=== PATIENT | female | born 1970 | race Caucasian/White ===

== ENCOUNTER 2017-12-13 06:05 | Emergency (ER) | payer SELFPAY ==
[~2017-12-13] VITALS: Ht 165.1 cm; Wt 65.1 kg
[2017-12-13 06:13] VITALS: BP 147/85
--- NOTE | 2017-12-13 06:18 | NUR ---
47Y F BIB FAMILY C/O 1 INCH LACERATION TO LEFT SIDE OF FOREHEAD, S/P FALL OFF BED AND HIT CORNER OF TABLE. PT DENIES ANY LOC/KO. PT DENIES ANY N/V/D/,CP, SOB AT THE MOMENT. PT IS AAOX4. BREATHING IS UNLABORED AND EVEN. PT AMBULATED TO ER BED 11 WITH STEADY GAIT. PT ACCOMPANIED BY FAMILY AT BEDSIDE. PT PLACED IN POSITION OF COMFORT.
--- NOTE | 2017-12-13 06:25 | NUR ---
Patient being evaluated by physician at bedside.
[2017-12-13] MEDS ORDERED: LIDOCAINE/EPI 2% 1:100000 20 ML VIAL INJ ONE ×2 (06:30→06:35)
--- NOTE | 2017-12-13 06:52 | NUR ---
LIDO/EPI 2% PLACED AT BEDSIDE FOR ER MD DR SUÁREZ TO ADMINISTER
--- NOTE | 2017-12-13 07:09 | NUR ---
INITIATED LAC REPAIR
--- NOTE | 2017-12-13 07:13 | NUR ---
FINISHED LAC REPAIR
[2017-12-13 07:21] VITALS: BP 141/81
--- NOTE | 2017-12-13 07:21 | NUR ---
Patient discharged with v/s stable. Written and verbal after care instructions given and explained. Patient alert, oriented and verbalized understanding of instructions. Ambulatory with steady gait. All questions addressed prior to discharge. ID band removed. Patient advised to follow up with PMD. Opportunity to ask questions provided and answered.
== END 2017-12-13 07:21 | disposition home or self-care (01) ==
LOC: MED 06:05
DX: S01.81XA Laceration without foreign body of other part of head, initial encounter (principal); Z88.2 Allergy status to sulfonamides; W06.XXXA Fall from bed, initial encounter; Y93.89 Activity, other specified; Y92.89 Other specified places as the place of occurrence of the external cause; Y99.8 Other external cause status
CPT/HCPCS: 12001; 99283; J2001

== ENCOUNTER 2019-08-21 00:29 | Emergency (ER) | payer MEDICAID, OTHER ==
[~2019-08-21] VITALS: Ht 165.1 cm; Wt 61.2 kg
--- NOTE | 2019-08-21 00:30 | NUR ---
PT WAS WHEEL CHAIRED TO BED #11
[2019-08-21 00:34] VITALS: BP 109/54
[2019-08-21] MEDS ORDERED: KETOROLAC 60 MG/2 ML VIAL IM ONE (00:50)
[2019-08-21] MEDS ORDERED: DIAZEPAM 5 MG TAB PO ONE (01:10)
--- NOTE | 2019-08-21 01:10 | NUR ---
48/F PRESENTS TO ED WITH FAMILY/FRIEND, C/O L GROIN PAIN RADIATING TO L THIGH, SINCE YESTERDAY AFTERNOON. PT DENIES FEVER, N/V/D, CONSTIPATION OR DYSURIA. DENIES TRAUMA/INJURY. PT AWAKE AND ALERT, RESTLESS, SKIN NORMAL COLOR WARM AND DRY, RR EVEN AND UNLABORED. DENIES MED HX. REPORTS TAKING OLD RX NORCO FROM TOOTH PAIN, WITHOUT RELIEF.
[2019-08-21 01:56] VITALS: BP 110/64
--- NOTE | 2019-08-21 01:56 | NUR ---
Patient discharged with v/s stable. Written and verbal after care instructions given and explained. Patient alert, oriented and verbalized understanding of instructions. Ambulatory with steady gait. All questions addressed prior to discharge. ID band removed. Patient advised to follow up with PMD. Rx of CIPRO 500MG, MOTRIN 600MG AND VALIUM 5MG given. Patient educated on indication of medication including possible reaction and side effects. Opportunity to ask questions provided and answered.
== END 2019-08-21 01:56 | disposition home or self-care (01) ==
LOC: MED 00:29
DX: M79.605 Pain in left leg (principal); N39.0 Urinary tract infection, site not specified; Z98.890 Other specified postprocedural states
CPT/HCPCS: 81002; 81025; 96372; 99283; J1885

== ENCOUNTER 2019-08-23 01:00 | Emergency (ER) | payer OTHER ==
[~2019-08-23] VITALS: Ht 165.1 cm; Wt 61.2 kg
[2019-08-23 01:05] VITALS: BP 130/49
--- NOTE | 2019-08-23 01:06 | NUR ---
PT TAKEN TO BED 12 VIA WHEELCHAIR.
--- NOTE | 2019-08-23 01:10 | NUR ---
48 YO F BIB PRESENTS TO ED C/O 08/20 ACHING LEFT LEG PAIN THAT PT STATES IS CONSTANT AND SEVERE X 2-3 DAYS. PT STATES IT STARTS WHERE HER THIGH MEETS HER PELVIS AND RADIATES ALL THE WAY DOWN HER LEG INTO HER TOES. PT REPORTS IT SPASMS AT TIMES. PT DENIES RECENT TRAUMA/INJURY. NO VISIBLE DEFORMITIES NOTED. PT WAS SEEN YESTERDAY AND WAS TX FOR UTI. SENT HOME WITH CIPRO, MOTRIN AND VALIUM -- PT AWAKE, A/O X 4. APPEARS TO BE IN SEVERE PAIN; MOANING, HYPERVENTILATING, CRYING, UNABLE TO STAY STILL. -- PT REQUIRED WC ASSISTANCE AND WAS CARRIED BY INTO BED. PMH-- DENIES RX-- CIPRO, MOTRIN, VALIUM @ 1600 YESTERDAY
--- NOTE | 2019-08-23 01:18 | NUR ---
DR. TROTTER EVALUATING AT BEDSIDE.
[2019-08-23] MEDS ORDERED: MORPHINE SULFATE 2 MG/ML SYR IM ONE (01:25)
[2019-08-23] MEDS ORDERED: LORazepam 2 MG/ML VIAL IM ONE (01:25)
--- NOTE | 2019-08-23 01:40 | NUR ---
XRAY AT BEDSIDE.
--- NOTE | 2019-08-23 02:10 | NUR ---
EMT PROVIDING CRUTCHES DEMONSTRATION AT BEDSIDE.
--- NOTE | 2019-08-23 02:12 | NUR ---
PT CRUTCHES FITTED TO PT HEIGHT AND ARM LENGTH. PT GIVEN INSTRUCTIONS ON PROPER USE OF CRUTCHES AND PT DEMONSTRATED SAFE USE.
[2019-08-23 02:22] VITALS: BP 117/84
--- NOTE | 2019-08-23 02:22 | NUR ---
Patient discharged with v/s stable. Written and verbal after care instructions given and explained. Patient alert, oriented and verbalized understanding of instructions. Ambulatory with steady gait. All questions addressed prior to discharge. ID band removed. Patient advised to follow up with PMD. Rx of Tramadol and Robaxin given. Patient educated on indication of medication including possible reaction and side effects. Opportunity to ask questions provided and answered.
== END 2019-08-23 02:22 | disposition home or self-care (01) ==
LOC: MED 01:00
DX: S76.012A Strain of muscle, fascia and tendon of left hip, initial encounter (principal); I10 Essential (primary) hypertension; Z98.890 Other specified postprocedural states; Z88.2 Allergy status to sulfonamides; X58.XXXA Exposure to other specified factors, initial encounter; Y92.89 Other specified places as the place of occurrence of the external cause; Y93.89 Activity, other specified; Y99.8 Other external cause status
CPT/HCPCS: 73502; 96372; 99283; J2060; J2270; Q0092

== ENCOUNTER 2022-01-03 13:07 | Emergency (ER) | payer OTHER ==
[~2022-01-03] VITALS: Ht 165.1 cm; Wt 63.5 kg
[2022-01-03 13:10] VITALS: BP 149/92
--- NOTE | 2022-01-03 13:30 | NUR ---
51 y/o F BIB self from home c/o cough, SOB and chest pain x 1 day. Patient A&Ox4, ambulatory, reports chest pain 8/10, pressure/tightness/intermittent, radiating to back of neck. Pt reports symptoms began while walking and alleviates with rest. Patient states testing + for COVID last month and reports negative test today prior to arrival. Denies nausea, vomiting, dizziness, headache, blurry vision, abdominal pain. Denies meds prior to arrival. Pt placed onto teletypesetter monitor. VSS; respirations even/unlabored; SpO2 99% on room air. Cap refill <2 seconds; skin pink/warm/dry. Bed locked in lowest position, side rails x 2. PMH/Sx/Meds: degenreative disk disease, C-sections NKDA
--- NOTE | 2022-01-03 13:30 | NUR ---
EMT at bedside for EKG
--- NOTE | 2022-01-03 13:41 | NUR ---
Dr. Toth is evaluating patient at bedside
--- NOTE | 2022-01-03 13:45 | NUR ---
BLOOD WORK COLLECTED BY LAB
--- NOTE | 2022-01-03 13:48 | NUR ---
RADIOLOGY AT BEDSIDE
[2022-01-03 13:58] LABS: BASOPHILS % (AUTO) 0.6 % (0.0-2.0); EOSINOPHILS # (AUTO) 0.1 K/uL (0-0.4); EOSINOPHILS % (AUTO) 3.5 % (0.0-4.0); HEMATOCRIT 38.5 % (36-48); HEMOGLOBIN 12.7 g/dL (12.0-16.0); LYMPHOCYTES # (AUTO) 1.6 K/uL (2.5-16.5); LYMPHOCYTES % (AUTO) 39.5 % (20.5-51.1); MEAN CORPUSCULAR HEMOGLOBIN 28 pg (27-31); MEAN CORPUSCULAR HGB CONC 33 g/dL (33-37); MEAN CORPUSCULAR VOLUME 85.5 fL (80-94); MONOCYTES # (AUTO) 0.7 K/uL (0.8-1.0); MONOCYTES % (AUTO) 15.7 % (1.7-9.3); NEUTROPHILS # (AUTO) 1.7 K/uL (1.8-7.7); NEUTROPHILS % (AUTO) 40.7 % (42.2-75.2); PLATELET COUNT (AUTO) 303 K/uL (140-450); RED BLOOD CELL COUNT(AUTO) 4.51 MIL/uL (4.20-5.40); RED CELL DISTRIBUTION WIDTH 16.6 % (11.6-13.7); WHITE BLOOD COUNT (AUTO) 4.2 K/uL (4.8-10.8)
[2022-01-03 14:28] LABS: ALBUMIN 4.1 g/dL (3.4-5.0); ANION GAP 10.4 (8-16); CARBON DIOXIDE 31.8 mmol/L (21-32); CREATININE 0.9 mg/dL (0.6-1.3); POTASSIUM 4.2 mmol/L (3.5-5.1); TOTAL BILIRUBIN 0.4 mg/dL (0.0-1.0)
--- NOTE | 2022-01-03 14:50 | NUR ---
PATIENT IS STABLE AND SITTING IN BED. ALL NEEDS MET
--- NOTE | 2022-01-03 16:03 | NUR ---
Patient sitting upright in bed stretching. nurse monitoring in place. VSS. SpO2 99% on room air. Patient denies chest pain, headache, SOB, cough. All pt needs met at this time.
--- NOTE | 2022-01-03 17:05 | NUR ---
Lab at bedside
[2022-01-03 18:48] VITALS: BP 147/84
--- NOTE | 2022-01-03 18:50 | NUR ---
Patient discharged with v/s stable. Written and verbal after care instructions given on nonspecific cheset pain and explained. Patient verbalized understanding. Ambulatory with steady gait. All questions addressed prior to discharge. Advised to follow up with PMD.
== END 2022-01-03 18:48 | disposition home or self-care (01) ==
LOC: MED 13:07
DX: R07.89 Other chest pain (principal)
CPT/HCPCS: 36415; 71045; 80053; 83690; 83880; 84484; 85025; 85379; 93005; 99285

== ENCOUNTER 2022-01-31 23:08 | Emergency (ER) | payer OTHER ==
[~2022-01-31] VITALS: Ht 165.1 cm; Wt 64.4 kg
--- NOTE | 2022-01-31 23:20 | NUR ---
c/o right lower leg cellulitis x 5 days. Patient reported, had right lower leg pain and redness since 01/26/22, went to urgent care and rx Cephalexin-no relief. Patient need to eval for DVT. Sx: .
--- NOTE | 2022-01-31 23:20 | NUR ---
Ambulatory to bed 4.
--- NOTE | 2022-01-31 23:23 | NUR ---
DR CARR AT BEDSIDE FOR EXAM
[2022-01-31] MEDS ORDERED: ACETAMINOPHEN 325 MG TAB PO ONE (23:30)
[2022-01-31] MEDS ORDERED: CLINDAMYCIN 150 MG CAP PO ONE (23:30)
[2022-02-01] MEDS ORDERED: CLIN300C61 PO (00:28)
--- NOTE | 2022-02-01 00:30 | NUR ---
Patient discharged with v/s stable. Written and verbal after care instructions given and explained. Patient alert, oriented and verbalized understanding of instructions. Ambulatory with steady gait. All questions addressed prior to discharge. ID band removed. Patient advised to follow up with PMD. Rx of CLINDAMYCIN given. Patient educated on indication of medication including possible reaction and side effects. Opportunity to ask questions provided and answered.
== END 2022-02-01 00:30 | disposition home or self-care (01) ==
LOC: MED 23:08
DX: L03.115 Cellulitis of right lower limb (principal); Z79.899 Other long term (current) drug therapy; Z98.890 Other specified postprocedural states
CPT/HCPCS: 93971; 99284; Q0092

== ENCOUNTER 2022-02-01 21:10 | Emergency (ER) | payer OTHER ==
[~2022-02-01] VITALS: Ht 165.1 cm; Wt 67.3 kg
[~2022-02-01 21:10] MED LIST: CLIN300C61 PO
[2022-02-01 21:22] VITALS: BP 155/99
--- NOTE | 2022-02-01 21:25 | NUR ---
PT SENT TO LOBBY, WAITING FOR BED.
--- NOTE | 2022-02-01 22:40 | NUR ---
CALLED IN LOBBY AND OUTSIDE NO ANSWER.
--- NOTE | 2022-02-01 22:49 | NUR ---
CALLED IN LOBBY AND OUTSIDE NO ANSWER.
--- NOTE | 2022-02-01 22:54 | NUR ---
CALLED IN LOBBY NO ANSWER.
== END 2022-02-01 22:40 | disposition left against medical advice (07) ==
LOC: MED 21:10
DX: R13.10 Dysphagia, unspecified (principal); Z53.21 Procedure and treatment not carried out due to patient leaving prior to being seen by health care provider; Z88.2 Allergy status to sulfonamides